=== PATIENT | male | born 1940 | race Caucasian/White ===

== ENCOUNTER 2025-02-13 11:42 | Emergency (ER) | payer MEDICAID, MEDICARE ==
[~2025-02-13] VITALS: Ht 170.2 cm; Wt 91.0 kg
[2025-02-13 11:46] VITALS: O2SAT 98
[2025-02-13] MEDS: LIDOCAINE 5% PATCH TOP ONE (13:16)
[2025-02-13] MEDS: KETOROLAC 15MG/ML VIAL IM ONE (13:16)
[2025-02-13 15:05] VITALS: BP 150/66; PULSE 92; RESP 16; TEMP 37; O2SAT 98
== END 2025-02-13 15:05 | disposition home or self-care (01) ==
LOC: ER 11:42
DX: M25.551 Pain in right hip (principal); R51.9 Headache, unspecified; E11.9 Type 2 diabetes mellitus without complications; I10 Essential (primary) hypertension; I67.82 Cerebral ischemia
CPT/HCPCS: 99285; 70450; 73502; 72125; 96372; J1885